=== PATIENT | male | born 1965 | race Hispanic/Latino ===

== ENCOUNTER 2020-08-12 07:56 | Day surgery (SDC) | payer BC ==
[2020-08-05 10:20] LABS: BASOPHILS % (AUTO) 0.8 % (0.0-5.0); EOSINOPHILS % (AUTO) 1.8 % (0.0-8.0); HEMATOCRIT 47.4 % (42-54); LYMPHOCYTES % (AUTO) 25.8 % (21.0-51.0); MEAN CORPUSCULAR HEMOGLOBIN 29.8 pg (27.0-33.0); MEAN CORPUSCULAR HGB CONC 34.6 g/dL (32.0-36.0); MONOCYTES % (AUTO) 4.7 % (3.0-13.0); NEUTROPHILS % (AUTO) 66.5 % (40.0-77.0); PLATELET COUNT (AUTO) 197 K/uL (130-400); RED BLOOD CELL COUNT(AUTO) 5.51 MIL/uL (4.50-6.20); RED CELL DISTRIBUTION WIDTH 12.9 % (11.0-15.5); WHITE BLOOD COUNT (AUTO) 5.1 K/uL (4.8-10.8)
[2020-08-05 11:05] LABS: POTASSIUM 4.1 mmol/L (3.5-5.1)
[2020-08-11 11:57] VITALS: BP 145/84
[~2020-08-12] VITALS: Ht 169.2 cm; Wt 83.0 kg
[2020-08-12] VITALS (16 sets, daily range): BP systolic 107–118; BP diastolic 56–86
[~2020-08-12 07:56] MED LIST: AEC81 PO; GLIP5TAB11 PO; LISI-617 PO; METF-446 PO
[2020-08-12] MEDS ORDERED: SODIUM CHLORIDE 0.9% 1000ML 1,000 ML IV ONE (08:28)
[2020-08-12] MEDS: CEFAZOLIN SODIUM 1 GM VIAL IVP SCH ×2 (08:45→12:34)
[2020-08-12] MEDS ORDERED: EPINEPHRINE 1 MG/ML 30ML VIAL IJ ONE (10:16)
[2020-08-12] MEDS ORDERED: SUCCINYLCHOLINE 200MG/10ML SYR ONE (10:33)
[2020-08-12] MEDS ORDERED: LIDOCAINE PF 2% 5ML ABBOJECT ONE (10:33)
[2020-08-12] MEDS ORDERED: FENTANYL CITRATE PF 50 MCG/1 ML 2ML VIAL ONE (10:34)
[2020-08-12] MEDS ORDERED: ROCURONIUM 10MG/1ML SYR 10 MG/ML ML ONE (10:34)
[2020-08-12] MEDS ORDERED: PROPOFOL 10 MG/ML 20ML VIAL IV ONE (10:34)
[2020-08-12] MEDS ORDERED: ROPIVACAINE 0.5% 5MG/ML 30ML IJ ONE (10:38)
[2020-08-12] MEDS ORDERED: EPHEDRINE SULFATE 50 MG/ML AMPULE ONE (12:42)
[2020-08-12] MEDS ORDERED: KETOROLAC TROMETHAMINE 30MG/ML ONE (14:51)
[2020-08-12] MEDS ORDERED: NEOSTIGMINE 5MG/5ML SYR IV ONE (14:51)
[2020-08-12] MEDS ORDERED: GLYCOPYRROLATE 1 MG/5 ML SYRINGE ONE (14:51)
[2020-08-12] MEDS ORDERED: CEPH500B PO (14:59)
[2020-08-12] MEDS ORDERED: HYDR-4457 PO (14:59)
== END 2020-08-12 17:20 | disposition home or self-care (01) ==
LOC: DAH 07:56
PROVIDERS: ATTEND Orthopaedic Surgery
DX: M75.122 Complete rotator cuff tear or rupture of left shoulder, not specified as traumatic (principal); M75.42 Impingement syndrome of left shoulder; M19.012 Primary osteoarthritis, left shoulder; G89.29 Other chronic pain; I10 Essential (primary) hypertension; E11.9 Type 2 diabetes mellitus without complications; E78.00 Pure hypercholesterolemia, unspecified; Z98.890 Other specified postprocedural states; Z79.899 Other long term (current) drug therapy; Z20.828 Contact with and (suspected) exposure to other viral communicable diseases
CPT/HCPCS: 29824; 29826; 29827; 36415; 64415; 76942; 80048; 82948 ×2; 85025; A4215; A4221; A4222; A4223 ×2; A4565; A4606; A4649 ×5; A4657; A4663; A4930 ×2; A6206; C1713 ×2; C9803; G0168; J0171; J0330; J0690; J1885; J2001; J2704; J2710; J2795; J3010; J3490 ×2; J7030 ×2; U0003

== ENCOUNTER → 2022-02-24 | Outpatient (CLI) | payer OTHER ==
[~2022-02-24] MED LIST changes: +CEPH500B PO; +HYDR-4457 PO; -LISI-617 PO; +LISI5TAB21 PO
[2022-02-24 08:13] LABS: BASOPHILS % (AUTO) 0.9 % (0.0-5.0); EOSINOPHILS % (AUTO) 4.3 % (0.0-8.0); HEMATOCRIT 50.5 % (42-54); LYMPHOCYTES % (AUTO) 30.3 % (21.0-51.0); MEAN CORPUSCULAR HEMOGLOBIN 29.3 pg (27.0-33.0); MEAN CORPUSCULAR HGB CONC 34.9 g/dL (32.0-36.0); MONOCYTES % (AUTO) 5.4 % (3.0-13.0); NEUTROPHILS % (AUTO) 58.6 % (40.0-77.0); PLATELET COUNT (AUTO) 188 K/uL (130-400); RED BLOOD CELL COUNT(AUTO) 6.01 MIL/uL (4.50-6.20); RED CELL DISTRIBUTION WIDTH 13.2 % (11.0-15.5); WHITE BLOOD COUNT (AUTO) 5.8 K/uL (4.8-10.8)
[2022-02-24 08:51] LABS: ALBUMIN 3.8 g/dL (3.5-5.0); BILIRUBIN,TOTAL 0.4 mg/dL (0.2-1.0); CREATININE 0.9 mg/dL (0.5-1.5); POTASSIUM 4.9 mmol/L (3.5-5.1); TOTAL PROTEIN, SERUM 7.2 g/dL (6.0-8.3)
[2022-02-24 09:25] LABS: THYROID STIMULATING HORMONE 3.25 uIU/mL (0.36-3.74)
== END | disposition home or self-care (01) ==
LOC: LAB 07:13
PROVIDERS: ATTEND Nurse Practitioner Adult Health
DX: Z00.00 Encounter for general adult medical examination without abnormal findings (principal)
CPT/HCPCS: 36415; 80053; 80061; 82043; 83036; 84153; 84443; 85025

== ENCOUNTER → 2023-07-28 | Outpatient (CLI) | payer OTHER ==
[~2023-07-28] MED LIST changes: -GLIP5TAB11 PO; +GLIP5TAB15 PO
== END | disposition home or self-care (01) ==
LOC: RAH 11:13
PROVIDERS: ATTEND Nurse Practitioner Adult Health
DX: Z13.6 Encounter for screening for cardiovascular disorders (principal); R93.1 Abnormal findings on diagnostic imaging of heart and coronary circulation; I25.10 Atherosclerotic heart disease of native coronary artery without angina pectoris
CPT/HCPCS: 75571